=== PATIENT | female | born 2000 | race African-American/Black ===

== ENCOUNTER 2022-07-25 13:54 | Emergency (ER) | payer MEDICAID ==
[~2022-07-25] VITALS: Ht 172.7 cm; Wt 219.0 kg
[2022-07-25] MEDS ORDERED: DexAMETHasone 4 MG TAB PO ONE (15:15)
[2022-07-25] MEDS ORDERED: IPRATROPIUM BROM 0.5 MG/2.5ML INH SOL NEB ONE (15:15)
[2022-07-25] MEDS ORDERED: ALBUTEROL SULF 2.5 MG/0.5ML(0.5%) NEB SOLN NEB ONE (15:15)
[2022-07-25 17:59] VITALS: BP 118/71
== END 2022-07-25 18:00 | disposition home or self-care (01) ==
LOC: ER 13:54
DX: J45.909 Unspecified asthma, uncomplicated (principal); J06.9 Acute upper respiratory infection, unspecified
CPT/HCPCS: 71046; 93005; 94640; 99285; J7644; J8540